=== PATIENT | male | born 1950 | race Caucasian/White ===

== ENCOUNTER 2017-09-22 09:50 | Day surgery (SDC) | payer OTHER ==
[2017-09-17 17:41] VITALS: BMI 28.1
[2017-09-22] MEDS ORDERED: PROPOFOL 20 ML ONE ×2 (10:23)
[2017-09-22 11:59] VITALS: BP 106/66; PULSE 61; TEMP 98
--- NOTE | 2017-09-23 11:28 | PATH ---
Surgical Pathology Report Patient Name: MAXIMILIANO GUERRERO [facility]. Rec. #: [id number] /Age/Gender: 1950 (Age: 67) / M Account: [id number] Location: [facility] AMBULATORY Taken: 09/22/2017 Received: 09/22/2017 Reported: 09/23/2017 Physicians: Bright Beltárn M.D. Specimen(s) Received BX CECUM Clinical History Family history of colon cancer Polyp Final Diagnosis COLON, CECUM, BIOPSY: TUBULAR ADENOMA. Electronically Signed Kelton Burnham M.D. Gross Description Received in formalin, labeled "cecum" are 2 baumann, irregular portions of soft tissue averaging 0.2 cm. in greatest dimension. The specimens are submitted in toto in one cassette. /09/22/201709/22/2017
== END 2017-09-22 12:00 | disposition home or self-care (01) ==
LOC: FASU-ENDO 09:50
PROVIDERS: ATTEND Internal Medicine Gastroenterology
PROC: 0DBH8ZX Excision of Cecum, Via Natural or Artificial Opening Endoscopic, Diagnostic (ICD-10-PCS; principal; 2017-09-22 10:57)
DX: Z12.11 Encounter for screening for malignant neoplasm of colon (principal); Z80.0 Family history of malignant neoplasm of digestive organs; D12.0 Benign neoplasm of cecum
CPT/HCPCS: 88305-TC

== ENCOUNTER 2018-03-02 08:53 | Day surgery (SDC) | payer OTHER ==
[2018-02-26 11:48] VITALS: BMI 27.3
[2018-03-02] MEDS ORDERED: PROPOFOL 20 ML ONE (08:55)
[2018-03-02] MEDS ORDERED: LIDOCAINE HCL/PF 2% SDV 5ML VIAL ONE (08:55)
[2018-03-02] MEDS ORDERED: ePHEDrine SULFATE 50 MG/1 ML AMPULE ONE (10:07)
[2018-03-02 10:25] VITALS: TEMP 97.4
[2018-03-02 10:54] VITALS: BP 98/55; PULSE 70
--- NOTE | 2018-03-03 16:03 | PATH ---
Surgical Pathology Report Patient Name: MAXIMILIANO GUERRERO [facility]. Rec. #: [id number] /Age/Gender: 1950 (Age: 68) / M Account: [id number] Location: [facility]-ENDOS[facility] Taken: 03/02/2018 Received: 03/02/2018 Reported: 03/03/2018 Physicians: Bright Beltrán M.D. Specimen(s) Received A: BX DUODENUM B: BX ANTRUM Clinical History Preoperative diagnosis: GERD Postoperative diagnosis: Gastritis, anemia Final Diagnosis A. DUODENUM, BIOPSY: DUODENAL MUCOSA WITH NO PATHOLOGIC FINDINGS. B. 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 IMMUNOSTAIN SHOWS RARE H PYLORI ORGANISMS. Electronically Signed Jeannie Scott M.D. Gross Description A. Received in formalin, labeled "duodenum" is a baumann, irregular portion of soft tissue measuring 0.4 cm. in greatest dimension. The specimen is submitted in toto in one cassette. B. Received in formalin, labeled "antrum" are 2 baumann, irregular portions of soft tissue measuring 0.3 and 0.4 cm. in greatest dimension. The specimens are submitted in toto in one cassette. 03/02/2018 saudi03/02/2018
== END 2018-03-02 10:55 | disposition home or self-care (01) ==
LOC: FASU-ENDO 08:53
PROVIDERS: ATTEND Internal Medicine Gastroenterology
PROC: 0DB98ZX Excision of Duodenum, Via Natural or Artificial Opening Endoscopic, Diagnostic (ICD-10-PCS; principal; 2018-03-02 09:51)
PROC: 0DB68ZX Excision of Stomach, Via Natural or Artificial Opening Endoscopic, Diagnostic (ICD-10-PCS; 2018-03-02 09:51)
DX: D50.0 Iron deficiency anemia secondary to blood loss (chronic) (principal); K92.1 Melena; K29.50 Unspecified chronic gastritis without bleeding; B96.81 Helicobacter pylori [H. pylori] as the cause of diseases classified elsewhere; K31.9 Disease of stomach and duodenum, unspecified
CPT/HCPCS: 88305-TC; 88342-TC